=== PATIENT | male | born 1965 | race Caucasian/White ===

== ENCOUNTER 2017-03-01 08:29 | Emergency (ER) | payer BC ==
[2017-03-01 08:51] VITALS: BP 139/74
--- NOTE | 2017-03-01 09:08 | ERNOTE ---
Time Seen by Provider: 03/01/17 09:04 Stated Complaint: UPPER RESP Presenting Symptoms:: cough Source: patient Exam Limitations: no limitations Immunizations: IMMUNIZATION HX History of Influenza Vaccine No Hx Pneumococcal Vaccination No Allergies/Adverse Reactions: Allergies No Known Allergies Allergy (Verified 03/01/17 08:52) Home Medications: HOME MEDICATIONS Aspirin [Aspirin Enteric Coated] 81 mg PO DAILY 08/19/12 [Last Taken Unknown] Atorvastatin Calcium [Lipitor] 80 mg PO HS 08/19/12 [Last Taken Unknown] Metoprolol Succinate [Toprol Xl] 50 mg PO HS #0 tablet.sa 08/20/12 [Last Taken Unknown] Omeprazole [Prilosec] 10 mg PO DAILY 08/20/12 [Last Taken Unknown] Sertraline HCl [Zoloft] 50 mg PO DAILY 08/20/12 [Last Taken Unknown] Omeprazole 20 mg PO DAILY #30 tablet. 03/01/17 [Last Taken Unknown] - History of Present Ilness Narrative: Patient presents to the emergency room for a nocturnal cough that he has had for the past month which is only there nighttime when he lays his head down to sleep. He does have a generous amount of caffeinated beverages during his daily routine. Cough has been dry and it is only there when he lays down at nighttime. Review of Systems - Review of Systems Constitutional: Present: no symptoms reported EYE: Present: no symptoms reported ENT: Present: no symptoms reported Respiratory: Present: See HPI Cardiology: Present: no symptoms reported Gastrointestinal/Abdominal: Present: no symptoms reported - Patient's Past Medical History Patient History - Medical: Depression, GERD Patient History - Cardiac/Respiratory: Hypertension, Hyperlipidemia Patient History - Cancer: No Hx of Cancer Patient History - Surgical Procedures: Noncontributory Patient History - Other: None - Social History Living Situations: home Abuse History: No History of abuse Psych History: Hx of Depression Smoking Status: Never smoker Alcohol Use: none Drug Use: none - Immunizations Hx Pneumococcal Vaccination: No History of Influenza Vaccine: No Physical Exam - Physical Exam General Appearance: Present: wd/wn, alert, no apparent distress Head Exam: Present: normal inspection Ears, Nose, Throat: Present: normal ENT inspection Neck: Present: normal inspection, nontender Respiratory: Present: no respiratory distress, normal breath sounds, no accessory muscle use, chest nontender, lungs clear Cardiovascular/Chest: Present: regular rate, rhythm, no murmur, normal peripheral pulses Gastrointestinal/Abdominal: Present: normal bowel sounds, nontender ED Progress - Vital Signs Patient's Vital Signs:: I have reviewed the patient's vital signs. Vital Signs: Vital Signs 03/01/17 08:47 Temperature 36.4 C L Pulse Rate 67 Respiratory 16 Rate Blood Pressure 139/74 O2 Sat by Pulse 96 Oximetry - Progress/Reassessment Chief Complaint: Cough Plan - Plan Plan: This patient's symptoms are consistent with gastroesophageal reflux disease Departure Clinical Impression: GERD (gastroesophageal reflux disease) Qualifiers: Esophagitis presence: esophagitis presence not specified Qualified Code(s): K21.9 - Gastro-esophageal reflux disease without esophagitis - Departure Disposition: Home self-care Condition: Good Instructions: Gastroesophageal Reflux Disease, Pediatric, Food Choices for Gastroesophageal Reflux Disease, Child Additional Instructions: Please elevate head of bed while sleeping please follow up with her primary care doctor in 2 weeks. Please not Any caffeinated beverages or dietary caffeine. Referrals: Jhon Dunbar MD [Primary Care Provider] - Prescriptions: Omeprazole 20 mg PO DAILY #30 tablet.
== END 2017-03-01 09:11 | disposition home or self-care (01) ==
LOC: ER 08:29
DX: K21.9 Gastro-esophageal reflux disease without esophagitis (principal); I10 Essential (primary) hypertension; E78.5 Hyperlipidemia, unspecified; F32.89 Other specified depressive episodes